=== PATIENT | male | born 1960 | race Hispanic/Latino ===

== ENCOUNTER → 2019-09-19 | Day surgery (SDC) | payer BC ==
--- NOTE | 2019-09-14 13:49 | Diagnostic Imaging Report ---
Chest, 2 views, 09/14/2019. History: Preop, foot surgery. Comparison: None available. Findings: The cardiomediastinal silhouette and pulmonary vasculature are within normal limits. The lungs are clear without evidence of consolidation or pleural effusion. There are no acute osseous or soft tissue abnormalities. Impression: No acute cardiopulmonary abnormality. Signed by: Federico Maurer on 09/14/2019 1:46 PM
[2019-09-14 14:02] LABS: ANION GAP 12.2 mmol/L (8-16); BLOOD UREA NITROGEN 10 mg/dL (7-26); BUN/CREATININE RATIO 10 (6-25); CALCIUM 9.2 mg/dL (8.4-10.2); CARBON DIOXIDE 26 mmol/L (22-29); CHLORIDE 107 mmol/L (98-107); EST GLOMERULAR FILTRATION RATE > 60 ML/MIN (60-); GLUCOSE 114 mg/dL (74-118); POTASSIUM 4.2 mmol/L (3.5-5.1); SODIUM 141 mmol/L (136-145)
[2019-09-14 14:18] LABS: BASOPHILS % 0.5 % (0.0-1.0); EOSINOPHILS # (AUTO) 0.1 (0.0-0.4); EOSINOPHILS % 1.5 % (0.0-6.0); HEMATOCRIT 48.3 % (38.2-49.6); LYMPHOCYTES # (AUTO) 2.6 (1.0-3.2); LYMPHOCYTES % 29.6 % (18.0-39.1); MEAN CORPUSCULAR HEMOGLOBIN 30.9 pg (28-32); MEAN CORPUSCULAR HGB CONC 33.1 g/dL (31-35); MEAN CORPUSCULAR VOLUME 93.4 fL (81-99); MONOCYTES # (AUTO) 0.6 (0.2-0.8); MONOCYTES % 7.1 % (4.4-11.3); NEUTROPHILS # (AUTO) 5.4 (2.1-6.9); PLATELET COUNT 226 x10e3/uL (140-360); RED BLOOD COUNT 5.17 x10e6/uL (4.3-5.7); RED CELL DISTRIBUTION WIDTH 12.8 % (11.7-14.4)
[~2019-09-19] MED LIST: AVODART0.5 MG PO; BETAMETHASONE DISODIUM PHOS 6 MG/ML VIAL ONE; BUPIVACAINE HCL 0.5% INJ 30 ML VIAL INJ ONE; CEFAZOLIN SOD 1 GM/NS 50ML 100 ML IV ONE; DEXAMETHASONE SOD PHOS INJ 4 MG/ML VIAL ONE; KETOROLAC TROMETHAMINE 30 MG/ML VIAL ONE; LANSOPRAZOLE30 M1 PO; LIDOCAINE HCL 1% LOCAL INJ 20 ML VIAL ONE; LIDOCAINE HCL 2% LOCAL INJ 5 ML SDV VIAL INJ ONE; MUPIROCIN 2% OINT 22 GM TUBE ONE; ONDANSETRON HCL INJ 2MG/ML 2ML 2 MG/ML VIAL ONE; PROPOFOL IV EMULSION 10 MG/ML 20 ML VIAL ONE; SEVOFLURANE INHAL SOLN 250 ML PEN BTL ONE; SIMVASTATIN40 MG PO
--- OUTSIDE RECORDS SUMMARY | 2019-09-19 05:29 | XMS REPORT ---
Author [facility] Address Unknown Phone Unavailable Care Team Providers Care Research And Development Engineer Name Role Phone AGATHA TOPETE Unavailable Unavailable Problems This patient has no known problems. Allergies, Adverse Reactions, Alerts This patient has no known allergies or adverse reactions. Medications This patient has no known medications. Results Test Description Test Time Test Comments Text Results Atomic Results Result Comments CHEST 2 VIEWS 2019-09-14 13:46:00 [place] [address] Patient Name: EDDY MENDEZ MR #: [id number] : 1960 Age/Sex: 58/M Req #: [id number] Adm Physician: Ordered by: AGATHA TOPETE DPM Report #: [id number] Location: OR Room/Bed: Procedure: [id number] DX/CHEST 2 VIEWS Exam Date: 09/14/19 Exam Time: 1300 REPORT STATUS: Signed Chest, 2 views, 09/14/2019. History: Preop, foot surgery. Comparison: None available. Findings: The cardiomediastinal silhouette and pulmonary vasculature are within normal limits. The lungs are clear without evidence of consolidation or pleural effusion. There are no acute osseous or soft tissue abnormalities. Impression: No acute cardiopulmonary abnormality. Signed by: Wilda Maurer on 09/14/2019 1:46 PM Dictated By: WILDA MAURER MD [id number] Transcribed By: ARJUN on 09/14/19 1346 COPY TO: AGATHA TOPETE DPM
--- NOTE | 2019-09-19 09:37 | Diagnostic Imaging Report ---
EXAM: FOOT LEFT AP LAT DATE: 09/19/2019 8:38 AM INDICATION: Postop COMPARISON: None FINDINGS: There are postsurgical changes of the left foot with fixation hardware noted at the distal aspect of the first metatarsal. Fixation hardware also noted overlying the fourth digit. The remaining osseous structures demonstrate no evidence for acute fracture or dislocation. No focal lytic or blastic abnormality is identified. Mild plantar calcaneal spurring noted. IMPRESSION: Postsurgical changes of the left foot as above. Signed by: Dr. Shabbir Rogers MD on 09/19/2019 9:34 AM
[2019-09-19 09:40] VITALS: BP 132/83
--- NOTE | 2019-09-19 14:22 | Operative Report ---
DATE OF PROCEDURE: 09/19/2019 SURGEON: Delon Zuluaga DPM PREOPERATIVE DIAGNOSES: 1. Painful hallux valgus deformity, left foot. 2. Painful contracted hammertoe, 4th digit, left. 3. Painful contracted hammertoe, 5th digit, left. 4. Painful plantar calcaneal heel spur, left foot. 5. Tarsal tunnel syndrome, left foot. POSTOPERATIVE DIAGNOSES: Confirmed. OPERATIVE PROCEDURES: 1. Chavo bunionectomy with screw fixation of left foot. 2. Arthroplasty of 4th digit with K-wire fixation. 3. Arthroplasty of 5th digit. 4. Resection of plantar calcaneal heel spur. 5. Neurolysis, tibial nerve. 6. Neurolysis, medial plantar nerve. 7. Neurolysis, lateral plantar nerve. 8. Intraoperative use of fluoroscopy. 9. Trigger point shot of cortisone. 10. Application of posterior splint. ANESTHESIA: General. HEMOSTASIS: Pneumatic thigh tourniquet at 350 mmHg. PROCEDURE IN DETAIL: The patient was taken into the operating room and placed on the operating table in supine position. Following induction of general anesthesia by the anesthesiologist, Webril wraps were placed on the patient's left thigh, followed by application of left thigh tourniquet. The left lower extremity was then prepped and draped in the usual aseptic manner and following procedures were then performed: Procedure #1: Chavo bunionectomy with screw fixation of left foot. Attention was directed to the dorsal medial aspect of the 1st MPJ, where a 6 cm linear incision was performed. Incision was deepened via sharp and blunt dissection being careful to retract vital structures and ligate superficial vessels as necessary. Once level of capsule was reached, longitudinal capsulotomy was then performed exposing the dorsal medial exostosis of the 1st metatarsal head. Via the use of an oscillating saw, dorsal medial exostosis was excised from the operation site in toto. A V-osteotomy was then performed from medial to lateral. Capital fragment was then transpositioned laterally upon adequate surgical and anatomic reduction. Utilizing proper AO technique, a 2.0, 16 mm cortical screw in conjunction with a buried 0.045 K-wire was used to achieve stability of osteotomy site. All redundant bone medially was excised via the use of an oscillating saw and rotating bur. Procedures 2 and 3: Arthroplasty of 4th and 5th digits with K-wire fixation of 4th. Attention was then directed to the dorsal aspect of the above-mentioned toes, where a 3 cm linear incision was performed. Incision was deepened down to the joint capsule. Transverse capsulotomy was then performed exposing the head of the proximal phalanxes. Via the use of an oscillating saw, head of proximal phalanxes were excised from the operation site in toto. Fourth toe was still noted to be contracted, so a 0.045 K-wire was introduced up to metatarsophalangeal joint after properly copiously flushing the area with saline and rasping all bony edges. Procedure #4: Resection of plantar calcaneal heel spur, left foot. Attention was then directed to the medial aspect of the left heel, where a 6 cm linear incision was performed. Incision was deepened down to the plantar fascia level. Plantar fascia was clearly visualized. The medial one-half of the plantar fascia was then cut exposing the plantar calcaneal spur. Via the use of an osteotome and a mallet and reciprocating rasp, the plantar calcaneal spur was excised. All rough and bony edges were rasped smooth. Procedure #5, 6, and 7: Neurolysis, tibial nerve; neurolysis, medial plantar nerve; neurolysis, lateral plantar nerve, left foot. Attention was then directed to the medial aspect of the right talotibial joint posterior to the medial malleolus, where a 6 to 7 cm linear incision was performed. Incision was deepened down to the flexor retinaculum level. Utilizing a Metzenbaum incision and meticulous dissection, the flexor retinaculum was cut exposing the tibial nerve. Via the use of a blunt dissection, all adhesions to the tibial nerve were then resected. Incision was then deepened down to the fredo pedis and now the medial and lateral plantar nerves were visualized and utilizing meticulous dissection, the adhesions to the medial and lateral plantar nerve were released via blunt dissection. All areas were then copiously flushed with sterile antibiotic solution and suction. Closure was then obtained utilizing 3-0 Vicryl, 4-0 Vicryl, and 4-0 nylon for capsule, subcutaneous tissue, and skin respectively Procedure #9: Trigger point shot of cortisone was then given to the 1st and 4th interspace of the left foot. Then, approximately 10 mL of 0.5% plain Marcaine plus 10 mL of 1% Xylocaine plain were used to achieve local anesthesia of above-mentioned surgical area. Sterile dressing was applied. Upon release of the thigh tourniquet, blood hyperemia was noted immediate to all digits of the patient's left foot. Prior to closure, a TLS drain was inserted into the heel area to prevent any type of hematoma formation. Procedure #10: Application of posterior splint. A properly placed posterior splint was then applied keeping the foot at 90 degrees with respect to the leg to try for any type of postop complications. The patient was then transferred from the OR to recovery room with vital signs stable and neurovascular status intact. No intraoperative complications were encountered. Blood loss from the surgery was minimal. The patient to remain nonweightbearing with the aid of crutches, keep his foot elevated, and is to apply an ice pack to the ankle joint area. ERIC Hair/JOB /[id number]
== END | disposition home or self-care (01) ==
LOC: OR 05:17
PROVIDERS: ATTEND Podiatrist Foot Surgery
DX: M20.12 Hallux valgus (acquired), left foot (principal); M20.42 Other hammer toe(s) (acquired), left foot; M77.32 Calcaneal spur, left foot; G57.52 Tarsal tunnel syndrome, left lower limb; G58.8 Other specified mononeuropathies; E78.5 Hyperlipidemia, unspecified; K21.9 Gastro-esophageal reflux disease without esophagitis; F17.200 Nicotine dependence, unspecified, uncomplicated; Z01.810 Encounter for preprocedural cardiovascular examination; Z01.812 Encounter for preprocedural laboratory examination; Z01.818 Encounter for other preprocedural examination
CPT/HCPCS: 28035; 28119; 28285 ×2; 28296; 36415; 64704 ×2; 71046; 73620; 80048; 85025; 88304; 88311; 93005; C1713; J0690; J0720; J1100; J1885; J2001 ×2; J2405; J2704